=== PATIENT | male | born 1950 | race Caucasian/White ===

== ENCOUNTER → 2016-08-08 | Outpatient (CLI) | payer OTHER ==
[~2016-08-08] MED LIST: ACET-749 PO; ATOR10TA88 PO; CALC500C3 PO; CIPR-255 PO; CLC100 PO; DTR5 PO; MULT-190 PO; OXYB5TAB74 PO; POLY335019 PO; PSYL48.59 PO; TADA10TA PO
[2016-08-08 11:49] LABS: % FREE PSA 12.2 %; FREE PSA 1.5 ng/ml; PROSTATE SPECIFIC ANTIGEN 12.3 ng/ml (0.000-4.000)
== END | disposition home or self-care (01) ==
LOC: C.LAB 10:41
PROVIDERS: ATTEND Urology
DX: R97.20 Elevated prostate specific antigen [PSA] (principal)

== ENCOUNTER → 2016-08-10 | Outpatient (CLI) | payer OTHER | END | disposition home or self-care (01) | LOC: C.PATHSPEC 17:32 | PROVIDERS: ATTEND Urology | DX: C61 Malignant neoplasm of prostate (principal) ==

== ENCOUNTER → 2016-08-16 | Outpatient (CLI) | payer OTHER | END | disposition home or self-care (01) | LOC: C.LAB 10:13 | PROVIDERS: ATTEND Urology | DX: R97.20 Elevated prostate specific antigen [PSA] (principal); C61 Malignant neoplasm of prostate; R39.15 Urgency of urination ==

== ENCOUNTER → 2016-08-18 | Outpatient (CLI) | payer OTHER ==
[2016-08-18 12:44] LABS: BLOOD UREA NITROGEN 14 mg/dl (7-18); BUN/CREATININE RATIO 15.2 (10-20); CREATININE 0.92 mg/dl (0.60-1.40)
--- NOTE | 2016-08-18 15:50 | DIAGNOSTIC IMAGING REPORT ---
BONE SCAN WHOLE BODY CLINICAL HISTORY: Prostate carcinoma COMPARISON STUDY: No previous studies for comparison. FINDINGS: The patient was injected with 27 mCi of technetium 99 M MDP. Three-hour delayed whole body images were acquired. Skeletal uptake appears symmetric. There are no foci of increased activity viewed as suspicious for metastatic disease. IMPRESSION: No scintigraphic evidence of skeletal metastasis. Electronically signed by: Juan Matson M.D. 08/18/2016 3:48 PM Dictated Date/Time: 08/18/2016 3:47 PM
== END | disposition home or self-care (01) ==
LOC: C.NUCL 11:20
PROVIDERS: ATTEND Urology
DX: C61 Malignant neoplasm of prostate (principal)

== ENCOUNTER → 2016-08-22 | Outpatient (CLI) | payer OTHER ==
[~2016-08-22] MED LIST changes: +OPTIRAY 320 IV PRN
--- NOTE | 2016-08-22 09:51 | DIAGNOSTIC IMAGING REPORT ---
CT OF THE ABDOMEN AND PELVIS WITH CONTRAST CLINICAL HISTORY: Prostate cancer. COMPARISON STUDY: Whole-body bone scan August 18, 2016. TECHNIQUE: Following IV administration of 91 mL of Optiray-320, axial images of the abdomen and pelvis were obtained from the lung bases to the proximal femurs. Images were reviewed in the axial, sagittal, and coronal planes. IV contrast was administered without complication. CT DOSE: 317.06 mGy.cm FINDINGS: Lung bases are clear. Several subcentimeter hepatic lesions are too small to characterize but likely reflect cysts. The spleen, adrenal glands and pancreas are normal. There are numerous bilateral renal cysts, the largest of which is a 5.2 cm cyst arising from the lower pole of the right kidney. There is no hydronephrosis. Caliber and wall thickness of small and large bowel are normal. The appendix is normal. There is a left-sided inferior vena cava. No enlarged abdominal or pelvic lymph nodes are present. There are findings suggestive of a left inguinal hernia repair. Note is made of a subtle 2.9 cm enhancing focus within the left aspect of the prostate gland. No suspicious osseous lesions are present. There is no hydronephrosis. IMPRESSION: 1. No evidence of metastatic disease within the abdomen or pelvis. 2. Subtle 2.9 cm enhancing focus within the left aspect of the prostate gland. Although suboptimally assessed by CT, this could reflect the known primary tumor. 3. Multiple bilateral renal cysts. Electronically signed by: Pastor Bangura M.D. 08/22/2016 9:49 AM Dictated Date/Time: 08/22/2016 9:36 AM
== END | disposition home or self-care (01) ==
LOC: C.CTS 09:08
PROVIDERS: ATTEND Urology
DX: C61 Malignant neoplasm of prostate (principal)

== ENCOUNTER 2016-10-04 10:18 | Inpatient (IN) | payer OTHER ==
[2016-09-26 08:48] VITALS: BMI 23.0
--- NOTE | 2016-09-26 09:17 | PAT Medication Instructions ---
Service Date Sep 26, 2016. Current Home Medication List Atorvastatin (Lipitor), 1 TAB PO QAM Calcium Carbonate (Tums), 1-2 TAB PO PRN Ocuvite Preservision (Ocuvite Preservision), 1 TAB PO QAM Medication Instructions For Your Scheduled Surgery - Hold the following medications the morning of surgery: Calcium Carbonate (Tums), 1-2 TAB PO PRN Ocuvite Preservision (Ocuvite Preservision), 1 TAB PO QAM - Take the following medications the evening prior to surgery: Atorvastatin (Lipitor), 1 TAB PO QPM If you have any questions please call us at [phone] or [phone] ( Shira) or [phone]
[2016-09-26 09:51] LABS: BASO % 0.2 %; BASO ABS # 0.01 K/uL (0-0.2); COMPLETE YES; EOS % 1.4 %; HEMATOCRIT 43.3 % (42-52); IG% 0.2 %; LYMPH % 32.9 %; LYMPH ABS # 1.59 K/uL (1.2-3.4); MEAN CELL VOLUME 91.7 fL (80-100); MEAN CORPUSCULAR HEMOGLOBIN 31.8 pg (25-34); MEAN CORPUSCULAR HGB CONC 34.6 g/dl (32-36); MEAN PLATELET VOLUME 9.3 fL (7.4-10.4); MONO % 9.1 %; NEUT % 56.2 %; PLATELET COUNT 164 K/uL (130-400); RED BLOOD COUNT 4.72 M/uL (4.7-6.1); WHITE BLOOD COUNT 4.84 K/uL (4.8-10.8)
--- NOTE | 2016-09-26 09:57 | DIAGNOSTIC IMAGING REPORT ---
TWO VIEW CHEST CLINICAL HISTORY: Preoperative examination. FINDINGS: PA and lateral chest radiographs are obtained. No prior studies are available for comparison at the time of dictation. The cardiomediastinal silhouette is unremarkable. The lungs appear hyperinflated and hyperlucent with flattening the diaphragm and increased retrosternal clear space. The appearance suggests emphysema. Nonspecific interstitial thickening is noted. There is no airspace consolidation, large pleural effusion, or pneumothorax. The skeletal structures are osteopenic. Mild degenerative change is noted throughout the thoracic spine. IMPRESSION: Findings suggest emphysema. There is no acute cardiopulmonary abnormality. Electronically signed by: Johnson Miles M.D. 09/26/2016 9:56 AM Dictated Date/Time: 09/26/2016 9:55 AM
[2016-09-26 09:58] LABS: URINE APPEARANCE CLEAR (CLEAR); URINE BILIRUBIN NEG (NEG); URINE COLOR YELLOW; URINE NITRITE NEG (NEG); URINE SPECIFIC GRAVITY 1.017 (1.000-1.030); UROBILINOGEN NEG (NEG)
[2016-09-26 10:08] LABS: MANUAL MICROSCOPIC REQUIRED? NO; REVIEW REQ? NO
[2016-09-26 10:32] LABS: BUN/CREATININE RATIO 16.9 (10-20); POTASSIUM 4.7 mmol/L (3.5-5.1)
[~2016-10-04] VITALS: Ht 180.3 cm; Wt 74.9 kg
[2016-10-04] VITALS (8 sets, daily range): BP systolic 109–157; BP diastolic 51–89; PULSE 67–97; TEMP 36.3–36.9; O2SAT 94–98; Ht 180.3 cm; Wt 74.9 kg
[~2016-10-04 10:18] MED LIST changes: -ACET-749 PO; +BUPIVACAINE 0.5 % 5 MG/1 ML MPF 30ML VIAL ONE; +CEFAZOLIN 1000MG/55 ML D5W IV SCH; -CIPR-255 PO; -CLC100 PO; +DEXAMETHASONE SOD INJ 4 MG/ML VIAL ONE; -DTR5 PO; +EpHEDrine SULFATE 50MG/5ML SYR ONE; +FENTANYL CITRATE INJ 50 MCG/1 ML 2 ML VIAL ONE; +GLYCOPYRROLATE INJ 0.2 MG/ML VIAL ONE; +HEPARIN SOD 5000 UNIT/0.5 ML CARP SQ SCH; +LACTATED RINGER'S 1000ML 1,000 ML IV SCH; +LARYING-O-JET KIT (LTA) EXT ONE; +LIDOCAINE HCL 2% 2 ML VIAL (20MG/ML) ONE; +MIDAZOLAM HCL 1 MG/ML 2ML VIAL ONE; +NEOSTIGMINE METHYLSULFATE 5 MG/5 ML SYR ONE; +ONDANSETRON INJ 2 MG/ML 2 ML VIAL ONE; -OPTIRAY 320 IV PRN; -OXYB5TAB74 PO; +PHENYLEPHRINE 100MCG/ML 5ML SYR ONE; -POLY335019 PO; +PROPOFOL IV EMULSION 10 MG/ML 20 ML VIAL IV ONE; -PSYL48.59 PO; +ROCURONIUM BROMIDE 10 MG/ML 5 ML VIAL ONE; -TADA10TA PO
[2016-10-04] MEDS ORDERED: HEPARIN SOD 5000 UNIT/0.5 ML CARP ONE (10:50)
--- NOTE | 2016-10-04 11:13 | History & Physical Bridge Note ---
H&P Re-Evaluation Bridge Note: I have examined the patient, reviewed the History & Physical and in the interval since the performance of the History & Physical I have noted the following changes of clinical significance: No changes noted
[2016-10-04] MEDS ORDERED: METHYLENE BLUE 0.5% 10 ML VIAL ONE (11:24)
[2016-10-04] MEDS ORDERED: BUPIVACAINE 0.5 % 5 MG/1 ML MPF 30ML VIAL ONE (11:24)
[2016-10-04] MEDS ORDERED: BELLADONNA/OPIUM SUPP 60 MG SUPP PR ONE ×2 (11:49→12:29)
[2016-10-04] MEDS ORDERED: HYDROmorphone INJ 1 MG/ML SYR IV PRN ×2 (12:00→14:30)
[2016-10-04] MEDS ORDERED: FENTANYL CITRATE INJ 50 MCG/1 ML 2 ML VIAL IV PRN (12:00)
[2016-10-04] MEDS ORDERED: EpHEDrine SULFATE INJ 50 MG/ML AMP IV PRN (12:00)
[2016-10-04] MEDS ORDERED: ATROPINE SULFATE 0.1 MG/ML 5ML SYR IV PRN (12:00)
[2016-10-04] MEDS ORDERED: ONDANSETRON INJ 2 MG/ML 2 ML VIAL IV PRN ×2 (12:00→14:30)
[2016-10-04] MEDS ORDERED: CEFAZOLIN SOD 1 GM VIAL ONE (12:04)
[2016-10-04] MEDS ORDERED: FLOSEAL HEMOSTATIC MATRIX 10ML TOP ONE (13:51)
[2016-10-04] MEDS ORDERED: FAMOTIDINE IV INJ 20 MG in DEXTROSE 5% 100ML 100 ML IV PRN (14:30)
[2016-10-04] MEDS ORDERED: OXYBUTYNIN CHLORIDE 5 MG TAB PO PRN (14:30)
[2016-10-04] MEDS ORDERED: ACETAMINOPHEN/CODEINE 300/30MG TAB PO PRN (14:30)
--- NOTE | 2016-10-04 14:36 | [facility] Post Operative Brief Note ---
Immediate Operative Summary Operative Date Oct 04, 2016. Pre-Operative Diagnosis Prostate cancer Post-Operative Diagnosis Same Procedure(s) Performed Robotic Assisted Laparoscopic Prostatectomy with Lymph node dissection Surgeon Dr Ray Stereo Map Plotter Operator Surgeon(s) Lay MASSEY Estimated Blood Loss 100ML Findings As per dictation. Specimens A. Periprosthetic fat B. Prostate and seminal vesicles C. Right pelvic lymph node has clip D. Bladder neck margin E. Left pelvic lymph node F. Apical margin Drains SUPRIYA; corona Anesthesia Gen Complication(s) None Disposition Recovery Room / PACU (stable)
[2016-10-04 15:05] LABS: MEAN CELL VOLUME 90.3 fL (80-100); MEAN CORPUSCULAR HEMOGLOBIN 31.4 pg (25-34); MEAN PLATELET VOLUME 8.9 fL (7.4-10.4); PLATELET COUNT 133 K/uL (130-400); RED BLOOD COUNT 4.43 M/uL (4.7-6.1); WHITE BLOOD COUNT 6.65 K/uL (4.8-10.8)
[2016-10-04 15:25] LABS: BUN/CREATININE RATIO 15.4 (10-20); CALCIUM 8.4 mg/dl (8.5-10.1); POTASSIUM 4.2 mmol/L (3.5-5.1)
[2016-10-04 15:29] LABS: MEAN CORPUSCULAR HGB CONC 34.8 g/dl (32-36)
[2016-10-04] MEDS: LACTATED RINGER'S 1000ML 1,000 ML IV SCH ×2 (16:09→20:38)
--- NOTE | 2016-10-04 16:24 | Anesthesiology Progress Note ---
Anesthesia Post Op Note Date & Time Oct 04, 2016 at 16:24 Vital Signs Pain Intensity: 0 Vital Signs Past 12 Hours Date Time Temp Pulse Resp B/P Pulse Ox O2 Delivery O2 Flow Rate FiO2 10/04/16 16:12 36.3 76 17 153/85 98 Nasal Cannula 2.0 10/04/16 15:25 71 20 146/72 99 Nasal Cannula 2 10/04/16 15:15 36.4 71 18 153/79 98 Nasal Cannula 2 10/04/16 15:05 77 14 159/90 98 Nasal Cannula 2 10/04/16 14:55 76 12 157/86 99 Mask 10 10/04/16 14:45 79 16 160/77 100 Mask 10 10/04/16 14:37 36.7 92 16 160/99 98 Mask 10 10/04/16 10:42 36.8 16 147/89 97 Room Air Notes Mental Status: alert / awake / arousable, participated in evaluation Pt Amnestic to Procedure: Yes Nausea / Vomiting: adequately controlled Pain: adequately controlled Airway Patency, RR, SpO2: stable & adequate BP & HR: stable & adequate Hydration State: stable & adequate Anesthetic Complications: no major complications apparent
[2016-10-04] MEDS: ACETAMINOPHEN 500 MG TAB PO SCH ×2 (16:42→22:24)
--- NOTE | 2016-10-04 17:54 | OPERATIVE REPORT ---
DATE OF OPERATION: 10/04/2016 PREOPERATIVE DIAGNOSIS: Prostate cancer. POSTOPERATIVE DIAGNOSIS: Prostate cancer. PROCEDURE PERFORMED: Robotic assisted laparoscopic radical prostatectomy with bilateral pelvic lymph node dissection. ANESTHESIA: General. ESTIMATED BLOOD LOSS: 100 mL. URINE OUTPUT: Not recorded. SPECIMENS: 1. Periprostatic fat. 2. Prostate and seminal vesicle. 3. Right pelvic lymph node. 4. Left pelvic lymph node. 5. Bladder neck with prominent margin. 6. [place] permanent margin. DRAINS: 1. SUPRIYA drain. 2. Rosenthal catheter. PRIMARY SURGEON: Dr. Luis Alfredo Ray. HEALTH CLAIMS EXAMINER: Lay Caputo. DESCRIPTION OF THE PROCEDURE: Cristobal Brown was identified in the preoperative holding area. Appropriate informed consents were reviewed and completed and the patient was transported to the operating suite. Upon arrival, he received appropriate preoperative antibiotics in the form of Ancef as well as a subcutaneous dose of heparin for DVT prophylaxis. Adequate general anesthesia was achieved and the patient was placed in the dorsal lithotomy position where he was sterilely prepped and draped in a standard fashion. I began the case by passing a Veress per umbilicus, and insufflating the abdomen to 15 mmHg. I then entered in the infraumbilical site utilizing a 10 mm 0 degrees lens and a 12 mm Visiport. Inspection revealed no evidence of Veress trauma, no gross adhesive disease to preclude us from placing ports in standard prostatectomy fashion. These ports were placed under direct vision without difficulty. Of note, the patient has had 3 left-sided inguinal hernia repairs and 1 right-sided inguinal hernia repair. He is status post left orchiectomy. He has moderate scarring in the deep aspects of the pelvis with mesh clearly visible on the left side but less visible on the right. I began the case by mobilizing the lateral aspect of the sigmoid colon to free the left lateral pelvic wall. After this opened the pouch of Dilshad, I was able to turn my attention towards control of the umbilical ligaments just inferior to the umbilicus. I began on the right. I controlled this and then I incised the peritoneum just lateral to it down towards the medial aspect of the right internal ring. This incision was carried down to this area and I stopped my dissection at that point secondary to some scarring from his prior hernia repair. I performed the same procedure on the left controlling the umbilical ligaments just inferior to the umbilicus, then carrying incision lateral to it through the peritoneum down to the medial aspect of the internal ring and the vas deferens on the left. I then turned my attention to the midline and I carried my dissection midline between the 2 prior hernia resections until I was able to identify the pubic symphysis dissect beneath it until I uncovered the anterior surface of the prostate. I then worked from medial to lateral to connect my lateral peritoneal incision and this medial midline incision. I carefully worked around the prior hernia repairs and freed the bladder without any identifiable cystotomies or other complications. After this portion of the procedure was completed, I was able to defat the prostate in standard fashion and passed this off the table as a specimen. I then opened the endopelvic fascia, first on the right and the left beginning at the base of the prostate and moving to the apex. I was able to preserve all lateral levator musculature as well as the periurethral musculature. I placed a dorsal venous complex stitch utilizing a 0 Vicryl stitch in [id number] fashion. There was excellent hemostasis. I did pack the area next to this with 2 small sheets of Surgicel while I turned my attention to the bilateral lymph node dissection. I began on the right side. Anatomically, he has had some changes secondary to the hernia repair; however, was able to easily identify the right external iliac artery and just distal to it the iliac vein. I controlled the lymphatic packet just below the vein and dissected it behind the vein as well as lateral. I carried this as far circumflex vein and distally as far as the obturator nerve. Care was used to preserve the nerve. A clip was placed on the proximal extent of this packet adjacent to the external iliac closer to the bifurcation of the iliac vessels. The specimen was marked with a clip and placed in the deep pelvis. I then turned my attention to the left. Similar to the right side his anatomy has been distorted secondary to his 3 prior hernia repairs. I was able to identify the vasculature and utilized these as my consistent landmark. I dissected the lymphatic packet off the inferior and posterior aspect of the external iliac vein and carrying this again laterally as far, the circumflex vein and distally as far as the obturator nerve. The nerve was spared entirely and the proximal extent of this lymphatic packet was controlled with a Weck clip. The specimen was left unmarked and the 2 specimens were collected together in an EndoCatch bag and passed to the upper abdomen. I then turned my attention back to the prostate and bladder neck. With gentle traction on the Rosenthal catheter as well as lateral to medial traction for my instruments, I was able to demarcate the bladder neck. I made an incision anterior just above the anticipated location of the bladder neck and carried this down until I created a cystotomy. I then carefully preserved the bladder neck musculature laterally before completing my incision of the bladder neck. I deflated the Rosenthal catheter, passed a balloon through the cystotomy and used it to apply anterior traction. I dissected posteriorly to the bladder neck with care to avoid thinning the bladder. I carried this posteriorly until I encountered the bilateral ampule of the vasa. These were both dissected for approximately 4 cm before being transected. I utilized these to help retract the prostate anteriorly while I dissected the bilateral seminal vesicles. There were no complications for this portion of the procedure. I dissected posteriorly to the prostate splitting Denonvilliers' fascia with care to avoid encroachment upon the prostate on the left as this is the side that has the majority of his cancer. This dissection was carried distally as far as possible and laterally as far as possible. I began a nerve sparing dissection on the right side from the posterior aspect thinning this pedicle. I then controlled the vascular pedicle utilizing a series of Weck clips on the right before performing a nerve sparing procedure and preserving the vast majority of the neurovascular bundle on the right. This preservation was carried beyond the apex of the prostate and alongside the urethra. On the left, I took a slightly wider path and after controlling the vascular pedicle with a series of Weck clips I split the neurovascular bundle to ensure better x-ray insulation on the prostate. This again was carried distal to the prostate and alongside the urethra. I controlled the dorsal venous complex at that time utilizing bipolar electrocautery and I dissected the apex of the prostate with a combination of cold scissors and monopolar electrocautery. I transected the urethra cold over a Rosenthal catheter with excellent preservation of length. Of note, I did take a small margin of tissue from the apex as well as a small margin tissue from the bladder neck to be sent for permanent final margins. I began a running anastomosis using a double armed V-Loc stitch beginning at the posterior bladder neck and running this until the anterior surface of the bladder. We tested the anastomosis after the completion and found no evidence of leak. FloSeal was placed around the anastomosis and a SUPRIYA drain was guided into the left lateral most port. We then extracted the specimen through expansion of the infraumbilical incision. We closed this incision ultimately with 3 [id number] 0 PDS stitches. We infiltrated all incisions with 0.5% Marcaine and closed all incisions with 4-0 Monocryl and Dermabond. At that time the patient was extubated and taken to the PACU in stable condition. There were no complications. I attest to the content of the Intraoperative Record and any orders documented therein. Any exceptio ns are noted below.
[2016-10-04] MEDS: CEFAZOLIN IV 2,000 MG in DEXTROSE 5% 50ML 50 ML IV SCH (20:37)
[2016-10-04] MEDS: DOCUSATE SODIUM 100 MG CAP PO SCH (20:39)
[2016-10-04] MEDS ORDERED: ATORVASTATIN 10 MG TAB PO SCH (21:00)
[2016-10-04] MEDS: HEPARIN SOD 5000 UNIT/0.5 ML CARP SQ SCH (22:27)
[2016-10-05 03:01] VITALS: BP 111/51; PULSE 65; TEMP 36.8; O2SAT 95
[2016-10-05] MEDS: ACETAMINOPHEN 500 MG TAB PO SCH ×2 (03:14→09:04)
[2016-10-05] MEDS: CEFAZOLIN IV 2,000 MG in DEXTROSE 5% 50ML 50 ML IV SCH ×2 (03:16→12:42)
[2016-10-05] MEDS: KETOROLAC TROMETHAMINE 15 MG/ML VIAL IV PRN ×2 (03:18→13:55)
[2016-10-05] MEDS: LACTATED RINGER'S 1000ML 1,000 ML IV SCH (03:22)
[2016-10-05 06:34] LABS: COMPLETE YES; HEMATOCRIT 35.3 % (42-52); IG% 0.1 %; LYMPH % 10.7 %; LYMPH ABS # 0.84 K/uL (1.2-3.4); MEAN CELL VOLUME 90.5 fL (80-100); MEAN CORPUSCULAR HGB CONC 34.3 g/dl (32-36); MEAN PLATELET VOLUME 8.9 fL (7.4-10.4); MONO % 9.3 %; NEUT % 79.9 %; PLATELET COUNT 142 K/uL (130-400); WHITE BLOOD COUNT 7.85 K/uL (4.8-10.8)
[2016-10-05 07:01] LABS: BUN/CREATININE RATIO 14.1 (10-20); CALCIUM 7.9 mg/dl (8.5-10.1); POTASSIUM 4.3 mmol/L (3.5-5.1)
--- NOTE | 2016-10-05 07:33 | Progress Note ---
Subjective Date of Service: Oct 05, 2016. Subjective Pt evaluation today including: conversation w/ patient, chart review, lab review Voiding: corona catheter in place (patent, draining arabella colored urine with some old clot) 66 yo male s/p RALRP. Pt denies pain this morning. Reports he feels well. He reports he has been ambulating to the hallway without difficulty. Denies n/v. Denies passing flatus or BM. Labs stable. I&Os acceptable. Review of Systems Constitutional: No chills, No fever Respiratory: No shortness of breath Cardiac: No chest pain Abdomen: No nausea, No pain, No vomiting Male : No dysuria, No hematuria Heme: No abnormal bleeding/bruising Objective Vital Signs Date Time Temp Pulse Resp B/P Pulse Ox O2 Delivery O2 Flow Rate FiO2 10/05/16 03:01 36.8 65 16 111/51 95 Room Air 10/05/16 00:30 Room Air 10/04/16 22:45 36.9 67 17 109/57 94 Room Air 10/04/16 19:55 36.9 83 17 110/51 94 Room Air 10/04/16 18:34 36.8 97 18 117/63 98 Nasal Cannula 2.0 10/04/16 17:37 36.5 81 16 142/68 97 Nasal Cannula 2.0 10/04/16 16:37 36.6 80 17 141/73 98 Nasal Cannula 2.0 10/04/16 16:12 36.3 76 17 153/85 98 Nasal Cannula 2.0 10/04/16 15:35 98 Nasal Cannula 2.0 10/04/16 15:35 36.4 74 18 157/78 98 Nasal Cannula 2.0 10/04/16 15:35 Nasal Cannula 2.0 10/04/16 15:25 71 20 146/72 99 Nasal Cannula 2 10/04/16 15:15 36.4 71 18 153/79 98 Nasal Cannula 2 10/04/16 15:05 77 14 159/90 98 Nasal Cannula 2 10/04/16 14:55 76 12 157/86 99 Mask 10 10/04/16 14:45 79 16 160/77 100 Mask 10 10/04/16 14:37 36.7 92 16 160/99 98 Mask 10 10/04/16 10:42 36.8 16 147/89 97 Room Air Physical Exam General Appearance: no apparent distress Eyes: normal inspection ENT: hearing grossly normal Neck: no JVD Respiratory/Chest: no respiratory distress, no accessory muscle use Cardiovascular: no JVD Abdomen: soft, + pertinent finding (abdominal incisions c/d/i; SUPRIYA draining serosanguinous fluid) Extremities: normal inspection Neurologic/Psychiatric: alert, normal mood/affect, oriented x 3 Skin: normal color Laboratory Results Last 24 Hours Test 10/04/16 14:58 10/05/16 06:20 White Blood Count 6.65 K/uL 7.85 K/uL Red Blood Count 4.43 M/uL 3.90 M/uL Hemoglobin 13.9 g/dL 12.1 g/dL Hematocrit 40.0 % 35.3 % Mean Corpuscular Volume 90.3 fL 90.5 fL Mean Corpuscular Hemoglobin 31.4 pg 31.0 pg Mean Corpuscular Hemoglobin Concent 34.8 g/dl 34.3 g/dl RDW Standard Deviation 43.8 fL 43.3 fL RDW Coefficient of Variation 13.2 % 13.2 % Platelet Count 133 K/uL 142 K/uL Mean Platelet Volume 8.9 fL 8.9 fL Sodium Level 140 mmol/L 140 mmol/L Potassium Level 4.2 mmol/L 4.3 mmol/L Chloride Level 105 mmol/L 103 mmol/L Carbon Dioxide Level 26 mmol/L 28 mmol/L Anion Gap 9.0 mmol/L 9.0 mmol/L Blood Urea Nitrogen 15 mg/dl 14 mg/dl Creatinine 1.00 mg/dl 1.00 mg/dl Est Creatinine Clear Calc Drug Dose 74.6 ml/min 74.9 ml/min Estimated GFR () 89.2 89.2 Estimated GFR (Non- 77.0 77.0 BUN/Creatinine Ratio 15.4 14.1 Random Glucose 126 mg/dl 112 mg/dl Calcium Level 8.4 mg/dl 7.9 mg/dl Neutrophils (%) (Auto) 79.9 % Lymphocytes (%) (Auto) 10.7 % Monocytes (%) (Auto) 9.3 % Eosinophils (%) (Auto) 0.0 % Basophils (%) (Auto) 0.0 % Neutrophils # (Auto) 6.27 K/uL Lymphocytes # (Auto) 0.84 K/uL Monocytes # (Auto) 0.73 K/uL Eosinophils # (Auto) 0.00 K/uL Basophils # (Auto) 0.00 K/uL Immature Granulocyte % (Auto) 0.1 % Immature Granulocyte # (Auto) 0.01 K/uL Assessment and Plan POD #1 s/p RALRP. AFVSS. Pt doing well post-op. Will advance to a mechanical soft diet for breakfast. Hep lock after breakfast if tolerating PO. Encourage ambulation to hallway. Encourage use of IS. Possible d/c home after lunch if pain controlled, tolerating PO, and ambulating without difficulty. Discharge planning: home
[2016-10-05] MEDS ORDERED: CLC100 PO (07:37)
[2016-10-05] MEDS ORDERED: DTR5 PO (07:37)
[2016-10-05] MEDS ORDERED: ACET-749 PO (07:37)
[2016-10-05] MEDS ORDERED: CIPR-255 PO (07:37)
--- NOTE | 2016-10-05 07:40 | Discharge Instructions ---
Discharge Instructions Date of Service Oct 05, 2016. Admission Reason for Admission: Prostate Cancer Discharge Discharge Diagnosis / Problem: Prostate cancer Discharge Goals Goal(s): Decrease discomfort, Increase independence, Improve disease control, Therapeutic intervention Activity Recommendations Activity Limitations: as noted below Shower/Bathe: tomorrow . Instructions / Follow-Up Instructions / Follow-Up 1. Do not lift >15lbs x 6 weeks. 2. No heavy exercise x 6 weeks. You may engage in light activity such as walking and stairs as tolerated. 3. No sexual intercourse until cleared by Dr. Judge or Dr. Ray. 4. [address] not drive x [address] while taking narcotics. 5. You have been prescribed the antibiotic Ciprofloxacin. Start this medication 2 days prior to corona catheter removal. Finish all of the antibiotic you have been prescribed. 6. Immediately call our office at [phone] if your catheter is removed for any reason. 7. Follow-up as scheduled. Please call our office at [phone] if you need to reschedule for any reason. . Current Hospital Diet Hospital Diet(s): Regular Diet Discharge Diet Recommended Diet: Regular Diet Procedures Procedures Performed: Robotic Assisted Laparoscopic Prostatectomy with Lymph node dissection Pending Studies Studies pending at discharge: yes List of pending studies: prostate pathology Medical Emergencies . Who to Call and When: Medical Emergencies: If at any time you feel your situation is an emergency, please call 911 immediately. . Non-Emergent Contact Non-Emergency issues call your: Urologist Call Non-Emergent contact if: temperature is above 101.5, your pain is not controlled, your pain is worsening, your pain is unusual for you, your pain is concerning you, you have any medication questions . . "Provider Documentation" section prepared by Lay Caputo. VTE Core Measure Inpt VTE Proph given/why not?: Unfractionated heparin SQ, SCD's [place] Drug Monitoring Program Search Results: patient reviewed within database, no issues identified
[2016-10-05 08:23] VITALS: BP 100/52; PULSE 60; TEMP 36.8; O2SAT 98
--- NOTE | 2016-10-05 08:26 | Anesthesiology Progress Note ---
Anesthesia Post Op Note Date & Time Oct 05, 2016 at 08:26 Vital Signs Pain Intensity: 2.0 Vital Signs Past 12 Hours Date Time Temp Pulse Resp B/P Pulse Ox O2 Delivery O2 Flow Rate FiO2 10/05/16 08:23 36.8 60 17 100/52 98 Room Air 10/05/16 07:10 Room Air 10/05/16 03:01 36.8 65 16 111/51 95 Room Air 10/05/16 00:30 Room Air 10/04/16 22:45 36.9 67 17 109/57 94 Room Air Notes Mental Status: alert / awake / arousable, participated in evaluation Pt Amnestic to Procedure: Yes Nausea / Vomiting: adequately controlled Pain: adequately controlled Airway Patency, RR, SpO2: stable & adequate BP & HR: stable & adequate Hydration State: stable & adequate Anesthetic Complications: no major complications apparent
[2016-10-05] MEDS ORDERED: NURSING VERBAL MED ORDER ONE (09:00)
[2016-10-05] MEDS ORDERED: CEROVITE ADV FORMULA TAB PO SCH (09:00)
[2016-10-05] MEDS ORDERED: CALCIUM CARBONATE 500 MG CHEWABLE PO SCH (09:00)
[2016-10-05] MEDS: DOCUSATE SODIUM 100 MG CAP PO SCH (09:05)
[2016-10-05] MEDS: HEPARIN SOD 5000 UNIT/0.5 ML CARP SQ SCH (09:09)
[2016-10-05 10:45] VITALS: O2SAT 98
[2016-10-05 11:56] VITALS: BP 109/59; PULSE 64; TEMP 36.7; O2SAT 97
[2016-10-05 15:25] VITALS: BP 109/59; PULSE 64; TEMP 36.7; O2SAT 97
--- NOTE | 2016-10-13 08:11 | Discharge Summary ---
Discharge Summary Date of Service Oct 13, 2016. Discharge Summary Admission Date: Oct 04, 2016 at 10:41 Discharge Date: Oct 05, 2016 Discharge Disposition: Home Principal Diagnosis: prostate cancer Procedures: robotic prostatectomy with lymph node dissection Medication Reconciliation New Medications: Ciprofloxacin Hcl (Cipro) 500 Mg Tab 500 MG PO BID, #10 TAB 0 Refills Start 2 days prior to corona catheter removal. Acetaminophen/Codeine (Tylenol W/Codeine #3) 300 Mg/30 Mg Tab 1-2 TAB PO Q4H PRN for Pain, #20 TAB 0 Refills Docusate Sodium (Docusate Sodium) 100 Mg Cap 100 MG PO BID PRN for Constipation, #60 CAP 0 Refills Oxybutynin Chloride (Oxybutynin Chloride) 5 Mg Tab 5 MG PO Q8 PRN for BLADDER SPASMS, #30 TAB 0 Refills Continued Medications: Atorvastatin (Lipitor) 10 Mg Tab 1 TAB PO QPM for 30 Days, TAB 5 Refills Calcium Carbonate (Tums) 500 Mg Chew 1-2 TAB PO PRN Ocuvite Preservision (Ocuvite Preservision) 1 Tab Tab 1 TAB PO QAM, TAB Hospital Course Pt admitted for a robotic prostatectomy. Details of that procedure as dictated previously in the operative report, however, in summary, he tolerated the procedure very well and was transferred to the floor in stable condition. He progressed well overnight and was discharged home on post operative day #1 after his drain was removed. Total time spent on discharge = This includes examination of the patient, discharge planning, medication reconciliation, and communication with other providers. Discharge Instructions Please see previously written d/c instructions
[2017-01-18] MEDS ORDERED: PSYL48.59 PO (15:25)
[2017-01-18] MEDS ORDERED: TADA10TA PO (15:25)
[2017-02-13] MEDS ORDERED: POLY335019 PO (07:53)
[2017-03-20] MEDS ORDERED: OXYB5TAB74 PO (09:58)
== END 2016-10-05 16:45 | disposition home or self-care (01) | DRG 708 ==
LOC: ENRESERVTM → ENRESERVDT → C.ACU 10:18 → C.MSW 10:41
PROVIDERS: ADMIT Urology; ATTEND Urology
PROC: 0VT34ZZ Resection of Bilateral Seminal Vesicles, Percutaneous Endoscopic Approach (ICD-10-PCS; principal; 2016-10-04 12:00)
PROC: 0VT04ZZ Resection of Prostate, Percutaneous Endoscopic Approach (ICD-10-PCS; principal; 2016-10-04 12:00)
PROC: 07BC4ZX Excision of Pelvis Lymphatic, Percutaneous Endoscopic Approach, Diagnostic (ICD-10-PCS; principal; 2016-10-04 12:00)
PROC: 8E0W4CZ Robotic Assisted Procedure of Trunk Region, Percutaneous Endoscopic Approach (ICD-10-PCS; principal; 2016-10-04 12:00)
DX: C61 Malignant neoplasm of prostate (principal); E78.5 Hyperlipidemia, unspecified; M19.90 Unspecified osteoarthritis, unspecified site; R39.15 Urgency of urination; Z80.52 Family history of malignant neoplasm of bladder; Z79.899 Other long term (current) drug therapy

== ENCOUNTER 2016-10-07 23:30 | Emergency (ER) | payer OTHER ==
[~2016-10-07] VITALS: Ht 180.3 cm; Wt 76.2 kg
[~2016-10-07 23:30] MED LIST changes: +ACET-749 PO; -BUPIVACAINE 0.5 % 5 MG/1 ML MPF 30ML VIAL ONE; -CEFAZOLIN 1000MG/55 ML D5W IV SCH; +CIPR-255 PO; +CLC100 PO; -DEXAMETHASONE SOD INJ 4 MG/ML VIAL ONE; +DTR5 PO; -EpHEDrine SULFATE 50MG/5ML SYR ONE; -FENTANYL CITRATE INJ 50 MCG/1 ML 2 ML VIAL ONE; -GLYCOPYRROLATE INJ 0.2 MG/ML VIAL ONE; -HEPARIN SOD 5000 UNIT/0.5 ML CARP SQ SCH; -LACTATED RINGER'S 1000ML 1,000 ML IV SCH; -LARYING-O-JET KIT (LTA) EXT ONE; -LIDOCAINE HCL 2% 2 ML VIAL (20MG/ML) ONE; -MIDAZOLAM HCL 1 MG/ML 2ML VIAL ONE; -NEOSTIGMINE METHYLSULFATE 5 MG/5 ML SYR ONE; -ONDANSETRON INJ 2 MG/ML 2 ML VIAL ONE; -PHENYLEPHRINE 100MCG/ML 5ML SYR ONE; -PROPOFOL IV EMULSION 10 MG/ML 20 ML VIAL IV ONE; -ROCURONIUM BROMIDE 10 MG/ML 5 ML VIAL ONE
[2016-10-07 23:32] VITALS: Ht 180.3 cm; Wt 76.2 kg
[2016-10-08] MEDS ORDERED: OPTIRAY 320 IV PRN
[2016-10-08 00:08] VITALS: O2SAT 98
[2016-10-08 00:21] LABS: ISTAT CREATININE 0.9 mg/dl (0.6-1.3); ISTAT HEMOGLOBIN 12.2 g/dl (14.0-18.0); ISTAT IONIZED CALCIUM 1.14 mmol/l (1.12-1.32)
[2016-10-08 00:25] LABS: COMPLETE YES; EOS % 3.3 %; HEMATOCRIT 37.2 % (42-52); IG% 0.2 %; LYMPH % 28.6 %; LYMPH ABS # 1.46 K/uL (1.2-3.4); MEAN CELL VOLUME 91.9 fL (80-100); MEAN CORPUSCULAR HEMOGLOBIN 31.4 pg (25-34); MEAN CORPUSCULAR HGB CONC 34.1 g/dl (32-36); MEAN PLATELET VOLUME 9.5 fL (7.4-10.4); NEUT % 57.9 %; PLATELET COUNT 168 K/uL (130-400); RED BLOOD COUNT 4.05 M/uL (4.7-6.1); WHITE BLOOD COUNT 5.11 K/uL (4.8-10.8)
[2016-10-08] MEDS ORDERED: SODIUM CHLORIDE 0.9% 1000ML 1,000 ML IV STA (00:27)
[2016-10-08 00:33] LABS: URINE APPEARANCE CLOUDY (CLEAR); URINE BILIRUBIN NEG (NEG); URINE COLOR DK YELLOW; URINE NITRITE NEG (NEG); UROBILINOGEN NEG (NEG); ZZURINE CULT IF INDIC CATH NO
[2016-10-08 00:35] LABS: MANUAL MICROSCOPIC REQUIRED? NO; REVIEW REQ? NO
[2016-10-08 00:35] LABS: PARTIAL THROMBOPLASTIN RATIO 1.1; PROTHROMBIN TIME (PATIENT) 10.6 SECONDS (9.0-12.0)
[2016-10-08 00:42] LABS: BUN/CREATININE RATIO 15.4 (10-20); CALCIUM 8.2 mg/dl (8.5-10.1); CREATININE 0.94 mg/dl (0.60-1.40); POTASSIUM 4.2 mmol/L (3.5-5.1)
[2016-10-08] MEDS ORDERED: SOAP SUDS ENEMA PR STA (01:47)
--- NOTE | 2016-10-08 03:16 | EMERGENCY ROOM VISIT NOTE ---
History First contact with patient: 23:39 Chief Complaint: SWELLING TO EXTREMITY Stated Complaint: PROSTRATE REMOVED 10-04,SWOLLEN LEGS,BLOOD IN CATH History of Present Illness The patient is a 66 year old male who presents to the Emergency Room with complaints of lower down the pain, problems with his catheter and leg swelling for the past day who had his prostate removed on the seventh of this month. This is done by Dr. Ray urology. Patient had prostate carcinoma. He has a Rosenthal catheter in place. He is not on antibiotics or blood thinners. Patient states tonight he noticed blood in the urine and around his urethral meatus. Patient also has not had a bowel movement since the surgery. He has been taking his Colace. Patient complains of lower abdominal pain described as cramping, ranging in severity 6 out of 10. Nothing makes it better or worse. Patient complains of bilateral lower leg swelling and discomfort for the past day. Patient denies chest pain, dyspnea, fever, chills, nausea, vomiting, diarrhea, back pain. He is tolerating by mouth fluids and food. Patient states he noticed leg swelling tonight when he woke up from his chair where he fell asleep watching TV. His legs were not elevated. He does not smoke. No recent travel. No history of blood clots. He has not been walking much today. Review of Systems See HPI for pertinent positives & negatives. A total of 10 systems reviewed and were otherwise negative. Past Medical/Surgical History Prostate cancer with prostatectomy, hyperlipidemia Social History Smoking Status: Never Smoker Current/Historical Medications Scheduled Atorvastatin (Lipitor), 1 TAB PO QPM Calcium Carbonate (Tums), 1-2 TAB PO PRN Ciprofloxacin Hcl (Cipro), 500 MG PO BID Ocuvite Preservision (Ocuvite Preservision), 1 TAB PO QAM Scheduled PRN Acetaminophen/Codeine (Tylenol W/Codeine #3), 1-2 TAB PO Q4H PRN for Pain Docusate Sodium (Docusate Sodium), 100 MG PO BID PRN for Constipation Oxybutynin Chloride (Oxybutynin Chloride), 5 MG PO Q8 PRN for BLADDER SPASMS Allergies Coded Allergies: No Known Allergies (Unverified , 10/08/16) Physical Exam Vital Signs Date Time Temp Pulse Resp B/P Pulse Ox O2 Delivery O2 Flow Rate FiO2 10/08/16 02:35 67 18 145/84 96 Room Air 10/08/16 00:29 68 20 96 Room Air 10/08/16 00:10 63 10/08/16 00:08 98 Room Air 10/07/16 23:32 36.5 82 18 135/81 97 Room Air Physical Exam VITALS: Vitals are noted on the nurse's note and reviewed by myself. Vital signs stable. GENERAL: Pleasant male anxious-appearing, in no acute distress, nondiaphoretic, well-developed well-nourished. SKIN: Surgical incisional site on the abdomen without signs or symptoms of infection and appear to be healing nicely The rest of the skin was without rashes, erythema, edema, or bruising. There is no tenting of the skin. Capillary reflex less than 2 seconds. HEAD: Normocephalic atraumatic. EARS: External auditory canals clear, tympanic membranes pearly parsons without erythema or effusion bilaterally. EYES: Pupils equal round and reactive to light and accommodation. Conjunctivae without injection, sclerae without icterus. Extraocular movements intact. NOSE: Patent, turbinates without inflammation or discharge. MOUTH: Mucous membranes moist. Pharynx without erythema or exudate. Uvula midline. Airway patent. Tongue does not deviate. NECK: Supple without nuchal rigidity. No lymphadenopathy. No thyromegaly. Cervical spine is nontender. No JVD. HEART: Regular rate and rhythm without murmurs gallops or rubs. LUNGS: Clear to auscultation bilaterally without wheezes, rales or rhonchi. No dullness to percussion. No retractions or accessory muscle use. ABDOMEN: Positive bowel sounds x 4. Normal tympanic percussion. Soft, tender to palpation lower abdomen, surgical incisional site intact without signs of infection, no CVA tenderness, without masses or organomegaly. Amador sign negative. No guarding or rebound tenderness. exam: Normal male external genitalia, catheter in place with minimal amount of blood around the urethral meatus with Rosenthal catheter draining without difficulties MUSCULOSKELETAL: No muscle atrophy, erythema, noted. +1 pitting edema up to the mid tib-fib bilaterally. NEURO: Patient was alert and oriented to person place and time. Normal sensation to light and sharp touch. No focal neurological deficits. Medical Decision & Procedures Laboratory Results 10/08/16 00:00 Red Blood Count 4.05, Mean Corpuscular Volume 91.9, Mean Corpuscular Hemoglobin 31.4, Mean Corpuscular Hemoglobin Concent 34.1, Mean Platelet Volume 9.5, Neutrophils (%) (Auto) 57.9, Lymphocytes (%) (Auto) 28.6, Monocytes (%) (Auto) 10.0, Eosinophils (%) (Auto) 3.3, Basophils (%) (Auto) 0.0, Neutrophils # (Auto ) 2.96, Lymphocytes # (Auto) 1.46, Monocytes # (Auto) 0.51, Eosinophils # (Auto ) 0.17, Basophils # (Auto) 0.00 10/08/16 00:00 Test 10/08/16 00:00 10/08/16 00:03 10/08/16 00:04 White Blood Count 5.11 K/uL (4.8-10.8) Red Blood Count 4.05 M/uL (4.7-6.1) Hemoglobin 12.7 g/dL (14.0-18.0) Hematocrit 37.2 % (42-52) Mean Corpuscular Volume 91.9 fL (80-100) Mean Corpuscular Hemoglobin 31.4 pg (25-34) Mean Corpuscular Hemoglobin Concent 34.1 g/dl (32-36) Platelet Count 168 K/uL (130-400) Mean Platelet Volume 9.5 fL (7.4-10.4) Neutrophils (%) (Auto) 57.9 % Lymphocytes (%) (Auto) 28.6 % Monocytes (%) (Auto) 10.0 % Eosinophils (%) (Auto) 3.3 % Basophils (%) (Auto) 0.0 % Neutrophils # (Auto) 2.96 K/uL (1.4-6.5) Lymphocytes # (Auto) 1.46 K/uL (1.2-3.4) Monocytes # (Auto) 0.51 K/uL (0.11-0.59) Eosinophils # (Auto) 0.17 K/uL (0-0.5) Basophils # (Auto) 0.00 K/uL (0-0.2) RDW Standard Deviation 44.1 fL (36.4-46.3) RDW Coefficient of Variation 13.1 % (11.5-14.5) Immature Granulocyte % (Auto) 0.2 % Immature Granulocyte # (Auto) 0.01 K/uL (0.00-0.02) Prothrombin Time 10.6 SECONDS (9.0-12.0) Prothromb Time International Ratio 1.0 (0.9-1.1) Activated Partial Thromboplast Time 27.7 SECONDS (21.0-31.0) Partial Thromboplastin Ratio 1.1 Est Creatinine Clear Calc Drug Dose 80.1 ml/min Estimated GFR () 96.2 Estimated GFR (Non- 83.0 BUN/Creatinine Ratio 15.4 (10-20) Calcium Level 8.2 mg/dl (8.5-10.1) Total Bilirubin 0.4 mg/dl (0.2-1) Direct Bilirubin 0.1 mg/dl (0-0.2) Aspartate Amino Transf (AST/SGOT) 47 U/L (15-37) Alanine Aminotransferase (ALT/SGPT) 46 U/L (12-78) Alkaline Phosphatase 67 U/L (45-117) Total Protein 6.6 gm/dl (6.4-8.2) Albumin 3.1 gm/dl (3.4-5.0) Bedside Hemoglobin 12.2 g/dl (14.0-18.0) Bedside Hematocrit 36 % (42-52) Bedside Sodium 141 mEq/L (135-144) Bedside Potassium 4.1 mEq/L (3.3-5.0) Bedside Chloride 100 mEq/L (101-112) Bedside Total CO2 29 mEq/l (24-31) Anion Gap 18.0 mmol/L (16-25) Bedside Blood Urea Nitrogen 14 mg/dl (7-18) Bedside Creatinine 0.9 mg/dl (0.6-1.3) Bedside Glucose (other) 103 mg/dl (70-99) Bedside Ionized Calcium (Margie) 1.14 mmol/l (1.12-1.32) Urine Color DK YELLOW Urine Appearance CLOUDY (CLEAR) Urine pH 5.0 (4.5-7.5) Urine Specific [place] 1.020 (1.000-1.030) Urine Protein 2+ (NEG) Urine Glucose (UA) NEG (NEG) Urine Ketones NEG (NEG) Urine Occult Blood 3+ (NEG) Urine Nitrite NEG (NEG) Urine Bilirubin NEG (NEG) Urine Urobilinogen NEG (NEG) Urine Leukocyte Esterase TRACE (NEG) Urine WBC (Auto) 5-10 /hpf (0-5) Urine RBC (Auto) >30 /hpf (0-4) Urine Hyaline Casts (Auto) 1-5 /lpf (0-5) Urine Epithelial Cells (Auto) 5-10 /lpf (0-5) Urine Bacteria (Auto) NEG (NEG) Medications Administered Medications (Trade) Dose Ordered Sig/Danny Route Start Time Stop Time Status Last Admin Dose Admin Sodium Chloride (Nss 1000ml) 1,000 ml @ 999 mls/hr Q1H1M STAT IV 10/08/16 00:27 10/08/16 01:27 DC 10/08/16 01:18 999 MLS/HR Miscellaneous (Soap Suds Enema) 1 ea NOW STAT WI 10/08/16 01:47 10/08/16 01:48 DC 10/08/16 03:00 1 EA ED Course Prior records/ancillary studies reviewed. Triage Nursing notes reviewed. Additional history obtained from family The patient's history was concerning for abdominal pain. Differential diagnosis: Etiologies such as postsurgical complication, constipation, urinary obstruction , DVT, venous stasis appendicitis, diverticulitis, PUD, biliary pathology, UTI, pancreatitis, obstruction, mesenteric ischemia, aortic pathology, infections, inflammatory bowel disease, renal colic, as well as others were entertained. Physical examination findings: As above. ER treatment provided: Patient declined pain meds or antianxiety medication On reassessment the patient felt better. Diagnostics interpreted by me: The labs revealed mild anemia. No worrisome leukocytosis, negative urine Rosenthal catheter was easily flushed by nursing. No urinary retention by bladder scan Imaging studies: Ultrasound negative for DVT CT ABDOMEN & PELVIS: Compared to 08/22/16. Intraperitoneal free air, presumably related to recent surgery. Postoperative changes as seen in the anterior pelvic wall and scrotum. Presacral stranding and fluid noted. No organized fluid collection is identified. Wall thickening of the distal rectosigmoid colon raising possibility of colitis/proctitis. Rosenthal catheter and air in a thickened underdistended bladder. Correlate clinically to exclude cystitis. No significant hydronephrosis. Moderate amount of stool in the colon. Appendix is upper limits of normal, but otherwise unremarkable in appearance. Stranding adjacent to the appendiceal tip likely related to pelvic process. No significant bowel distention to suggest obstruction. Hepatic and renal hypodensities, similar to prior study. Bibasilar atelectatic changes. Nodular groundglass densities noted in the left lingula. Additional incidental findings. Radiologist: Frida Castillo M.D. Consultation: A consultation was placed with the Dr. Grullon. The case was discussed and diagnostics were reviewed. He recommends treatment for constipation and follow- up in clinic as scheduled. Exam and history seem consistent with constipation. Patient was given an enema as above with minimal relief. Patient wanted to go. He states he has magnesium citrate at home and was advised to use this. He felt somewhat better. No DVT on ultrasound. Negative urine. Rosenthal catheter was draining without difficulties. He was advised to wear the JULIO CÉSAR hose. He was advised to follow-up as scheduled with Dr. Ray this week or here in the ER sooner for severe pain, fevers, vomiting, problems with the Rosenthal, worsening signs or symptoms or as needed.By the evaluation outlined above emergent etiologies such as appendicitis, diverticulitis, PUD, biliary pathology, UTI, pancreatitis, obstruction, mesenteric ischemia, aortic pathology, infections, inflammatory bowel disease, renal colic, as well as others were deemed relatively unlikely. The pt informed about the findings as listed above. All questions were answered and pleased with the treatment. Return instructions were outlined and the patient was discharged in stable condition. Referral: The patient was referred back to their primary care physician for follow-up in 2 to 3 days for a recheck of the current condition. case reviewed with my Attending Medical Decision As above Impression Primary Impression: Constipation Additional Impressions: Localized swelling of both lower legs Postoperative abdominal pain Departure Information Dispostion Home / Self-Care Condition GOOD Referrals Luis F Baum MD (PCP) Patient Instructions My [facility] [place] Additional Instructions Wear JULIO CÉSAR hose during the day. Magnesium citrate: Drink half the bottle when you get up, if you do not have a bowel movement within 6 hours then drink the rest. Stay near a toilet. Frequently and see out your Rosenthal catheter bag. Acetaminophen(Tylenol) may be used for fever or pain. Use 1000mg every six hours as needed. Avoid using more than 3000mg in a 24 hour period. Rest and drink plenty of fluids as tolerated. Continue current medications. Light activity only. No lifting. Return to the ER immediately for worsening or persistent abdominal pain, vomiting, fevers, chest pains, difficulty breathing, worsening of your condition , or as needed. Follow up with your primary physician and urologist in 2-3 days for a recheck of your current condition. Problem Qualifiers Primary Impression: Constipation Constipation type: unspecified constipation type Qualified Codes: K59.00 - Constipation, unspecified
[2016-10-08] MEDS ORDERED: MAGNESIUM CITRATE 296 ML/BTL ONE (04:42)
[2016-10-08 04:48] VITALS: BP 145/84; PULSE 67; TEMP 36.5; O2SAT 96
--- NOTE | 2016-10-08 06:22 | EMERGENCY ROOM VISIT NOTE ---
ED Visit Note First contact with patient: 23:39 I have personally evaluated and examined this patient. I agree with assessment and plan of Salma Sharp PA-C. Post prostate resection for CA. Now with constipation, lower abdominal discomfort and leg swelling. Constipation likely somewhat ileus but not vomiting and able to tolerate PO and declining pain medications. Constipation plus post op likely cause of discomfort. No evidence sepsis infection. Leg swelling likely fluid related from post op period. No DVT.
--- NOTE | 2016-10-08 07:01 | DIAGNOSTIC IMAGING REPORT ---
CT ABD/PELVIS IV CONTRAST ONLY CLINICAL HISTORY: Severe lower abdominal pain. History of recent prostatectomy. COMPARISON STUDY: 08/22/2016 TECHNIQUE: Following the IV administration of 92 mL of Optiray-320, CT scan of the abdomen and pelvis was performed from the lung bases to the proximal femurs. Images are reviewed in the axial, sagittal, and coronal planes. IV contrast was administered without complication. CT DOSE: 368.80 mGy.cm FINDINGS: Lower chest: There are mild basilar atelectatic changes present. There is subcutaneous air within the left chest wall. Liver: There are subcentimeter hypodensities, similar to the prior study. These may reflect cysts. Gallbladder: Contracted Spleen: Normal in size and attenuation. Pancreas: Unremarkable. Adrenal glands: Unremarkable. Kidneys: There are multiple bilateral renal cysts. The largest in the right measures 5.2 cm. The largest in the left measures 3.9 cm. Bowel: There are no transition zones to indicate bowel obstruction. There are no findings to indicate acute appendicitis. There are no findings to indicate acute diverticulitis. There is borderline rectal wall thickening. Peritoneum: There are droplets of free intraperitoneal air. There is subcutaneous air within the abdominal wall. There is presacral soft tissue thickening. Vasculature: The abdominal aorta is normal in course and caliber. Adenopathy: None. Pelvic viscera: There is indwelling Rosenthal catheter. There is mild pelvic edema. Skeletal structures: No destructive osseous lesions are seen. IMPRESSION: 1. Subcutaneous air within the abdominal wall and free intraperitoneal air, likely secondary to recent surgery 2. Presacral soft tissue stranding and thickening. Peroneal edema. These findings likely relate to recent surgery. 3. Indwelling Rosenthal catheter. Air within the bladder wall likely iatrogenic. Bladder wall thickening likely secondary to a nondistended bladder 4. Borderline rectal wall thickening. 5. No evidence of bowel obstruction Electronically signed by: Juan Matson M.D. 10/08/2016 7:00 AM Dictated Date/Time: 10/08/2016 6:53 AM
--- NOTE | 2016-10-08 07:16 | DIAGNOSTIC IMAGING REPORT ---
ULTRASOUND VENOUS DOPPLER LWR EXT BILA CLINICAL HISTORY: Leg swelling. Recent surgery. COMPARISON STUDY: No previous studies for comparison. FINDINGS: Real-time and color flow Doppler imaging were performed. Flow was seen within the femoral, popliteal and calf veins with no intraluminal thrombus demonstrated. The saphenous vein is patent. IMPRESSION: No evidence of lower extremity DVT. Electronically signed by: Juan Matson M.D. 10/08/2016 7:15 AM Dictated Date/Time: 10/08/2016 7:15 AM
[2017-01-18] MEDS ORDERED: PSYL48.59 PO (15:25)
[2017-01-18] MEDS ORDERED: TADA10TA PO (15:25)
[2017-02-13] MEDS ORDERED: POLY335019 PO (07:53)
[2017-03-20] MEDS ORDERED: OXYB5TAB74 PO (09:58)
== END 2016-10-08 04:45 | disposition home or self-care (01) ==
LOC: C.EDB 23:31 → C.EDA 10-08 04:45
DX: K59.00 Constipation, unspecified (principal); M79.89 Other specified soft tissue disorders; R10.9 Unspecified abdominal pain; G89.18 Other acute postprocedural pain; Z85.46 Personal history of malignant neoplasm of prostate; E78.5 Hyperlipidemia, unspecified; Z79.899 Other long term (current) drug therapy; M79.605 Pain in left leg; M79.604 Pain in right leg

== ENCOUNTER → 2017-05-16 | Outpatient (CLI) | payer OTHER ==
[~2017-05-16] MED LIST changes: -ACET-749 PO; +ATOR10TA82 PO; -ATOR10TA88 PO; -CALC500C3 PO; -CIPR-255 PO; -CLC100 PO; +DTR/5 PO; -DTR5 PO; +POLY335019 PO; +PSYL48.59 PO; +TADA10TA PO
[2017-05-16 14:45] VITALS: BP 144/78; PULSE 72; TEMP 36.9; O2SAT 98
--- NOTE | 2017-05-16 16:21 | Radiation Oncology Follow-Up ---
Radiation Oncology Follow-Up Date of Visit May 16, 2017. Reason For Visit One-month follow-up and cancer survivorship care plan Radiation Completion Date 04/05/17 Diagnosis (1) Prostate cancer Status: Acute Onset Date: 08/10/2016 Location: both lobes of the prostate Histology Subtype: adenocarcinoma Stage: lll Permanent Comment: Rising PSA, pretreatment PSA 12.3 Status post ultrasound-guided biopsies 08/10/2016 Welton 3+3 and 4+3 Volume 39.9 Density 0.308 Status post prostatectomy 10/04/2016 Adenocarcinoma Welton 4+3 with tertiary 5 Positive margin at the apex and extraprostatic extension Stage pT3a pN0 Decipher score at 0.65, high risk category Status post completion of radiation therapy 04/05/2017. He received 7020 cGy Last Edited By: Lisbeth Paniagua on Apr 13, 2017 15:48 History of Present Illness Mr. Brown recently presented with an elevated PSA of 9.84 on 06/18/2016. The patient did have a repeat PSA of 12.3 on 08/08/2016. The patient was subsequently referred to Dr. Remigio Judge who recommended a transrectal ultrasound-guided biopsy of the prostate gland. The patient underwent a transrectal ultrasound-guided biopsy of the prostate gland on 08/10/2016. The prostate gland was measured to be 39.9 cc. The pathology revealed prostate adenocarcinoma that was Joe 4+3 and Joe 3+ 4. In total, there were 5/14 cores positive for prostate cancer. There was evidence of perineural invasion. The patient did have a bone scan on 08/18/[address] abdomen/pelvis on 08/22/2016 which showed no evidence of distant metastatic disease. The patient was seen by Dr. Ray who discussed surgery and radiation therapy is options for treatment. We are now seeing the patient in consultation discussed role of radiation therapy. All options were discussed with the patient. His decision was to undergo a prostatectomy. On 10/04/2016 he had a robotic-assisted prostatectomy. This revealed an adenocarcinoma with a Welton of 4+3 and tertiary 5. Approximate 65 % of the tissue submitted and was involved by adenocarcinoma. There was extraprostatic extension present. This was at multiple sites. Seminal vesicles were not involved. There was a positive margin at the apex. There was no lymphovascular or perineural invasion. 2 lymph nodes were evaluated and were negative for metastatic disease. This was staged pT3a pN0. He has had recheck PSAs. He had a PSA 11/08/2016 and this was 0.04. A PSA 12/29/2016 was 0.02. A Decipher prostate cancer evaluation was completed. This was found to be high at 0.65. This put him in a high risk category. He was referred back to our office to undergo adjuvant radiation therapy. Radiation was completed 04/05/2017. He received 7020 cGy. Interim History The patient completed his radiation therapy on 04/05/2017. He then had a PSA on April 10. This was found to be at 0.06. PSA prior on 12/29/2016 was 0.02. Patient has been concerned about the rise in the PSA. He continues to take Ditropan once daily. He feels this helps with his urinary symptoms. Last Monday he did go on a trip to [place]. He unfortunately had a lot of urinary frequency that particular day. Urination curd every 2 hours. He then decided on Monday with the return trip he would take a Ditropan 7 AM. With doing this he had no difficulty with his urination for the entire trip. He has not had a problem with urination since returning from the trip. He has had some indigestion. Excess belching. Denies nausea. He gave an AUA score of 3 today. Completed and expanded prostate cancer index for clinical practice and gave a score of 0 of 12 urinary incontinence symptoms. He gave a score of 3 of 12 urinary irritation symptoms. He gave a score of 0 12 bowel symptoms. He gave a score of 1212 and sexual symptoms. He gave a score of 2 of 12 and hormonal vitality symptoms. His total was 17 of 60. Allergies Coded Allergies: No Known Allergies (Unverified , 10/08/16) Home Medications Scheduled Atorvastatin (Lipitor), 1 TAB PO QPM Ocuvite Preservision (Ocuvite Preservision), 1 TAB PO QAM Oxybutynin Chloride (Ditropan), 5 MG PO DAILY Polyethylene Glycol 3350 (Miralax), 17 GM PO Q2D Psyllium (Metamucil), 1 TBS PO BID Scheduled PRN Tadalafil (Cialis), 10 MG PO HS PRN for ED Review of Systems Gastrointestinal: Symptoms: WNL GI Comments: Rectal spotting w/wiping x 1 week after RT - hemorroids per pt; Oral: Symptoms: No Problems Other Oral Symptoms: Takes metamucil;Takes miralax QOD to keep bowels regular; Respiratory: Symptoms: WNL Urinary: Symptoms: WNL Comments: 1 void/night; Skin: Symptoms: No Problems Additional Notes: He completed a distress management report and answered "no" to all questions. Physical Exam Vital Signs Date Time Temp Pulse Resp B/P (MAP) Pulse Ox O2 Delivery O2 Flow Rate FiO2 05/16/17 14:45 36.9 72 20 144/78 98 Fatigue: None General Appearance: no apparent distress Eyes: normal inspection, EOMI ENT: normal ENT inspection, hearing grossly normal Respiratory/Chest: lungs clear, no respiratory distress, no accessory muscle use Cardiovascular: regular rate, rhythm, no gallop, no murmur Abdomen: non tender, soft, no organomegaly Extremities: no pedal edema Neurologic/Psychiatric: no motor/sensory deficits, alert, normal mood/affect Skin: no rash Laboratory Studies Test 05/16/17 15:20 Prostate Specific Antigen 0.075 ng/ml (0.000-4.000) Assessment & Plan Plan: A PSA to was drawn today. He is going to call tomorrow for the results. We discussed the urinary symptoms. This may have been related to something that he had eaten. He'll continue the Ditropan 1 daily. He can take one in the morning should he notice urinary symptoms have increased. We discussed the indigestion. He may have some mild gastritis or GI upset from is concerned and worry about the elevated PSA. He has been taking Rolaids twice daily. He has a recheck appointment with Dr. Ray in June. He'll a recheck PSA prior to that visit. We asked him to return to our office in 6 months. Today we completed a cancer survivorship care plan. A copy of the document was given the patient. He was also given a survivorship booklet. Assessment & Plan (Attending) ADDENDUM: I agree with note created by Lisbeth Paniagua PA-C. I reviewed the patient's chart and information with her. I have examined and evaluated the patient. I reviewed relevant clinical information and answered the patient's and /or family's questions. REGULATOR OPERATOR Total Time In Follow-Up I spent 20 minutes speaking to the patient and performing examination. I spent 20 minutes reviewing information, preparing the survivorship document and completing this note. Total Time (Attending) In Follow-Up I spent 25 minutes examining and counseling the patient. REGULATOR OPERATOR Copy To Luis F Baum MD; Luis Alfredo Ray M.D.
== END | disposition home or self-care (01) ==
LOC: C.ONC 14:39
PROVIDERS: ATTEND Physician Assistant Medical
DX: Z08 Encounter for follow-up examination after completed treatment for malignant neoplasm (principal); Z92.3 Personal history of irradiation; Z85.46 Personal history of malignant neoplasm of prostate

== ENCOUNTER → 2017-09-20 | Outpatient (CLI) | payer OTHER ==
--- NOTE | 2017-09-20 10:18 | DIAGNOSTIC IMAGING REPORT ---
BILIARY ULTRASOUND CLINICAL HISTORY: LIVER CYST COMPARISON STUDY: CT scan performed September 2016 FINDINGS: The pancreas appears sonographically normal. The gallbladder. Sonographically normal. No solid hepatic masses are visualized. There are scattered tiny cysts the largest of which measured 14 mm. This is located within the left lobe. There is no ductal dilatation. The common bile duct measured 4 mm. There is no right-sided hydronephrosis. Multiple right renal cysts are visualized largest of which measures 6 cm IMPRESSION: 1. Small hepatic cysts the largest of which measures 14 mm 2. Ultrasonographically normal pancreas and gallbladder 3. No ductal dilatation Electronically signed by: Juan Matson M.D. 09/20/2017 10:17 AM Dictated Date/Time: 09/20/2017 10:16 AM
== END | disposition home or self-care (01) ==
LOC: C.ULTRBC 09:47
PROVIDERS: ATTEND Nurse Practitioner Family
DX: K76.89 Other specified diseases of liver (principal)

== ENCOUNTER → 2017-11-15 | Outpatient (CLI) | payer OTHER ==
[~2017-11-15] MED LIST changes: +DOCU-94 PO
[2017-11-15 13:04] VITALS: BP 119/67; PULSE 61; TEMP 36.6; O2SAT 99
--- NOTE | 2017-11-15 15:53 | Radiation Oncology Follow-Up ---
Radiation Oncology Follow-Up Date of Visit Nov 15, 2017. Reason For Visit Six-month follow-up Radiation Completion Date 04/05/17 Diagnosis (1) Prostate cancer Status: Acute Onset Date: 08/10/2016 Location: Both lobes of the prostate Histology Subtype: Adenocarcinoma Stage: lll Permanent Comment: Rising PSA, pretreatment PSA 12.3 Status post ultrasound-guided biopsies 08/10/2016 [place] 3+3 and 4+3 Volume 39.9 Density 0.308 Status post prostatectomy 10/04/2016 Adenocarcinoma [place] 4+3 with tertiary 5 Positive margin at the apex and extraprostatic extension Stage pT3a pN0 Decipher score at 0.65, high risk category No hormone suppression Status post completion of radiation therapy 04/05/2017. He received 7020 cGy Last Edited By: Lisbeth Paniagua on Nov 15, 2017 15:47 History of Present Illness Mr. Brown presented with an elevated PSA of 9.84 on 06/18/2016. The patient did have a repeat PSA of 12.3 on 08/08/2016. The patient was subsequently referred to Dr. Remigio Judge who recommended a transrectal ultrasound-guided biopsy of the prostate gland. The patient underwent a transrectal ultrasound-guided biopsy of the prostate gland on 08/10/2016. The prostate gland was measured to be 39.9 cc. The pathology revealed prostate adenocarcinoma that was Joe 4+3 and Joe 3+ 4. In total, there were 5/14 cores positive for prostate cancer. There was evidence of perineural invasion. The patient did have a bone scan on 08/18/[address] abdomen/pelvis on 08/22/2016 which showed no evidence of distant metastatic disease. The patient was seen by Dr. Ray who discussed surgery and radiation therapy is options for treatment. We are now seeing the patient in consultation discussed role of radiation therapy. All options were discussed with the patient. His decision was to undergo a prostatectomy. On 10/04/2016 he had a robotic-assisted prostatectomy. This revealed an adenocarcinoma with a [place] of 4+3 and tertiary 5. Approximate 65 % of the tissue submitted and was involved by adenocarcinoma. There was extraprostatic extension present. This was at multiple sites. Seminal vesicles were not involved. There was a positive margin at the apex. There was no lymphovascular or perineural invasion. 2 lymph nodes were evaluated and were negative for metastatic disease. This was staged pT3a pN0. He has had recheck PSAs. He had a PSA 11/08/2016 and this was 0.04. A PSA 12/29/2016 was 0.02. A Decipher prostate cancer evaluation was completed. This was found to be high at 0.65. This put him in a high risk category. He was referred back to our office to undergo adjuvant radiation therapy. Radiation was completed 04/05/2017. He received 7020 cGy. Interim History He has been doing well over the past 6 months. He has had improvement in his urinary symptoms. Today gave an AUA score of 2.5. He completed and expanded prostate cancer index composite for clinical practice and gave a score of 0 of 12 and urinary incontinence symptoms. He gave a score of 1 of 12 and urinary irritation symptoms. He gave a score of 0 12 and bowel symptoms. He gave a score of 12 of 12 in sexual symptoms. He gave a score of 2 of 12 and hormonal vitality symptoms. His total was 15 of 60. He had a recheck PSA June 12, 2017 and that was 0.09. He had a PSA August 28, 2017 and that was 0.05. His next PSA is planned for November. He had one episode of enuresis approximately 2 months ago. This has not recurred. Allergies Coded Allergies: No Known Allergies (Unverified , 10/08/16) Home Medications Scheduled Atorvastatin (Lipitor), 1 TAB PO QPM Docusate Sodium (Colace), 1 CAP PO Q2D Ocuvite Preservision (Ocuvite Preservision), 1 TAB PO QAM Polyethylene Glycol 3350 (Miralax), 17 GM PO Q2D Psyllium (Metamucil), 1 TBS PO BID Scheduled PRN Tadalafil (Cialis), 10 MG PO HS PRN for ED Review of Systems Gastrointestinal: Symptoms: WNL GI Comments: Managed with OTC medications Oral: Symptoms: No Problems Respiratory: Symptoms: WNL Urinary: Symptoms: WNL Comments: See AUA & EPIC Skin: Symptoms: No Problems Physical Exam Vital Signs Date Time Temp Pulse Resp B/P (MAP) Pulse Ox O2 Delivery O2 Flow Rate FiO2 11/15/17 13:04 36.6 61 16 119/67 99 Fatigue: None General Appearance: no apparent distress Eyes: normal inspection, EOMI ENT: normal ENT inspection, hearing grossly normal Neck: no adenopathy, thyroid normal Respiratory/Chest: lungs clear, no respiratory distress, no accessory muscle use Cardiovascular: regular rate, rhythm, no gallop, no murmur Abdomen: non tender, soft, no organomegaly Extremities: no pedal edema Neurologic/Psychiatric: no motor/sensory deficits, alert, normal mood/affect Skin: warm/dry Pain Management Patient Reports Pain: No Pain Management Plan He denies pain therefore requires no pain management. Laboratory Laboratory Results: were reviewed Laboratory Comments: Reviewed in the interim history. Pathology Pathology Results: were reviewed, and pertinent findings noted in HPI Imaging Imaging Studies: not applicable Assessment & Plan Plan: The patient is also seen today by Dr. Francis. Laboratory studies were reviewed. He will have his next PSA in November. Continue regular follow-up with Dr. Ray and his primary care provider. We discussed Kegel exercises to prevent any recurrence of enuresis. We asked him to return to our office in 6 months. He may call if he has any questions or concerns in the interim. Assessment & Plan (Attending) I agree with note created by Lisbeth Paniagua PA-C. I reviewed the patient's chart and information with her. I have examined and evaluated the patient. I reviewed relevant clinical information and answered the patient's and/or family' s questions. SAND SIFTER Total Time In Follow-Up I spent 20 minutes speaking to the patient in performing examination. I spent 15 minutes reviewing information and completing this note. [place] Total Time (Attending) In Follow-Up I spent 15 minutes examining and counseling the patient. SAND SIFTER Copy To Luis F Baum MD; Luis Alfredo Ray M.D.
== END | disposition home or self-care (01) ==
LOC: C.ONC 12:59
PROVIDERS: ATTEND Physician Assistant Medical
DX: Z08 Encounter for follow-up examination after completed treatment for malignant neoplasm (principal); Z92.3 Personal history of irradiation; Z85.46 Personal history of malignant neoplasm of prostate